=== PATIENT | female | born 1995 | race Caucasian/White ===

== ENCOUNTER 2019-12-18 00:57 | Outpatient (CLI) | payer OTHER ==
[2019-12-18 01:37] LABS: APPEARANCE,URINE CLEAR; BILIRUBIN,URINE NEGATIVE (NEGATIVE); COLOR,URINE STRAW; GLUCOSE, URINE NEGATIVE (NEGATIVE); KETONES,URINE NEGATIVE (NEGATIVE); LEUKOCYTE ESTERASE,URINE NEGATIVE (NEGATIVE); NITRITE,URINE NEGATIVE (NEGATIVE); PROTEIN,URINE NEGATIVE (NEGATIVE); URINE SPECIFIC GRAVITY 1.008; UROBILINOGEN,URINE NEGATIVE mg/dL (<2.0)
[2019-12-18 02:07] LABS: URINE AMPHETAMINES SCREEN NEGATIVE; URINE BARBITURATES SCREEN NEGATIVE; URINE BENZODIAZEPINES SCREEN NEGATIVE; URINE COCAINE SCREEN NEGATIVE; URINE MARIJUANA (THC) SCREEN NEGATIVE; URINE METHADONE SCREEN NEGATIVE; URINE PHENCYCLIDINE SCREEN NEGATIVE
[2019-12-18] MEDS ORDERED: HYDROXYZINE PAMOATE 50 MG CAPSULE PO ONE (04:17)
[2019-12-18] MEDS ORDERED: HYDROXYZINE PAMOATE 50 MG CAPSULE ONE (04:20)
--- NOTE | 2019-12-18 04:27 | RADIOLOGY REPORT (SQ) ---
EXAM DESCRIPTION: US BIOPHYSICAL PROFILE WITHOUT NON STRESS TEST COMPLETED DATE/TME: 12/18/2019 00:00 CLINICAL HISTORY: 24 years, Female, non reassuring hearttones COMPARISON: None. TECHNIQUE: Emergent biophysical profile LIMITATIONS: None. FINDINGS: breathing, tone, movement, fluid volume score 2 of 2 for a total biophysical profile score 8 of 8 IMPRESSION: biophysical profile score 8 of 8 copyright 2010 [employer]- All Rights Reserved
--- NOTE | 2019-12-18 10:08 | L&D Progress Notes ---
PROGRESS NOTES Datetime Report Generated by CPN: 12/18/2019 10:08 PROGRESS NOTE Informed Consent Obtained: Vaginal Delivery; Risks, Benefits and Alternatives Discussed Comment: I just arrived to Unit. Patient returned from US at 0404 and documentation noted at 0406 with 8/8 BPP. From report I was given previously patient reported to have irregular ctx and uncomfortable but reported cervix unchanged from RN eval. No decelerations were reported. Amount of strip visualized on review of short strip since return from US was reassuring with moderate variability and given reported no cervical change discharge order given at 0406. LAST VAGINAL EXAM-NURSING Nursing Exam Dilitation: 1.0 Nursing Exam Effacement: 25 Nursing Exam Station: high MEMBRANES Membranes: Ruptured Amniotic Fluid Color: Clear FETUS A Presentation: Vertex SIGNATURE SIGNATURE: [id number];[id number];[id number];[id number] Signature: with User ID: [email or web address]
== END 2019-12-18 04:35 | disposition home or self-care (01) ==
LOC: LC 00:57
PROVIDERS: ATTEND Student in an Organized Health Care Education/Training Program
DX: O36.8330 Maternal care for abnormalities of the fetal heart rate or rhythm, third trimester, not applicable or unspecified (principal); O47.1 False labor at or after 37 completed weeks of gestation; Z3A.39 39 weeks gestation of pregnancy
CPT/HCPCS: 76819; 80307; 81005

== ENCOUNTER 2019-12-18 04:58 | Inpatient (IN) | payer OTHER ==
[2019-12-18] MEDS ORDERED: OXYTOCIN 10 UNIT/ML VIAL ONE (05:13)
[2019-12-18] MEDS ORDERED: OXYTOCIN/0.9 % SODIUM CHLORIDE 30 UNIT/500 ML RTUINJ ONE (05:13)
[2019-12-18] MEDS ORDERED: MISOPROSTOL 0.2 MG TABLET ONE (05:13)
[2019-12-18] MEDS ORDERED: LIDOCAINE 1% INJ-PF (10 MG/ML) 30 ML SDV ONE (05:13)
[2019-12-18] MEDS ORDERED: RINGERS SOLUTION,LACTATED 1,000 ML IV PRN (05:23)
[2019-12-18] MEDS ORDERED: RINGERS SOLUTION,LACTATED 1,000 ML IV ONE (05:23)
[2019-12-18] MEDS ORDERED: PSEUDOEPHEDRINE HCL 30 MG TABLET PO PRN (05:24)
[2019-12-18] MEDS ORDERED: PROMETHAZINE HCL 25 MG TABLET PO PRN (05:24)
[2019-12-18] MEDS ORDERED: BENZOCAINE/MENTHOL AEROSOL SPRAY 56 ML TOP PRN (05:24)
[2019-12-18] MEDS ORDERED: OXYTOCIN/0.9 % SODIUM CHLORIDE 30 UNIT/500 ML RTUINJ IV PRN (05:24)
[2019-12-18] MEDS ORDERED: PROMETHAZINE HCL INJ 25 MG/1 ML VIAL IV PRN (05:24)
[2019-12-18] MEDS ORDERED: ACETAMINOPHEN 325 MG TABLET PO PRN (05:24)
[2019-12-18] MEDS ORDERED: MEASLES,MUMPS&RUBELLA VACC/PF 0.5 ML VIAL SUBCUT PRN (05:24)
[2019-12-18] MEDS ORDERED: GLYCERIN/WITCH HAZEL LEAF 1 EACH MED..WIPE TP PRN (05:24)
[2019-12-18] MEDS ORDERED: NA PHOS,M-B/NA PHOS,DI-BA (ADULT) 133 ML ENEMA PR PRN (05:24)
[2019-12-18] MEDS ORDERED: DIBUCAINE 1% OINTMENT 28 GM TP PRN (05:24)
[2019-12-18] MEDS ORDERED: ACETAMINOPHEN WITH CODEINE #3 TABLET PO PRN ×2 (05:24)
[2019-12-18] MEDS ORDERED: PROMETHAZINE HCL 25 MG SUPP.RECT PR PRN (05:24)
[2019-12-18] MEDS ORDERED: MAGNESIUM HYDROXIDE SUSP 30 ML UDCUP PO PRN (05:24)
[2019-12-18] MEDS ORDERED: ZOLPIDEM TARTRATE 5 MG TABLET PO PRN (05:24)
[2019-12-18] MEDS ORDERED: DIPH/PERTUSS(ACELL)/TETANUS VAC/PF 0.5 ML SYR (>=10YO) IM PRN (05:24)
[2019-12-18] MEDS ORDERED: DIPHENHYDRAMINE HCL 25 MG CAPSULE PO PRN (05:24)
[2019-12-18] MEDS ORDERED: ACETAMINOPHEN WITH CODEINE #3 TABLET ONE (05:44)
--- NOTE | 2019-12-18 06:01 | Admission Physical ---
Datetime Report Generated by CPN: 12/18/2019 06:00 CURRENT ADMISSION Chief Complaint: Uterine Contractions; Suspected Ruptured Membranes Indication for Induction: Not Applicable Admit Impression : Term, Intrauterine ; Active Labor; Ruptured Membranes Admit Plan: Admit to Unit; Initiate Labor Protocol ALLERGIES Medication Allergies: No Medication Allergies: No Known Allergies (12/18/2019) Latex: No Latex Allergies OBSTETRICAL HISTORY EDC: 12/22/2019 00:00 : 2 Para: 1 SEE RECORDS Alcohol: No Marijuana : No Cocaine: No Other Illicit Drugs: No Cigarettes: Never Smoker. [id number] PHYSICAL EXAM General: Normal HEENT: Normal Neurologic: Normal Thyroid: Deferred Heart: Normal Lungs: Normal Breast: Deferred Back: Normal Abdomen: Normal Genitourinary Exam: Normal Extremities: Normal DTRs: Normal Pelvic Type: Adequate Vital Signs: Reviewed MEMBRANES Membranes: Ruptured Amniotic Fluid Color: Clear FETUS A EGA: 39.3 Monitoring: External US Decelerations: None Presentation: Vertex Admit Comment: 24yo at 39+3 who presented initially this evening at 0120 for ctx and noted to be 07/19/hi by RN check. NST was reassuring but not reactive therefore BPP was obtained which was 8/8. Melo at 0300 was same cervical dilation. Discharged due to no cervical change and reassuring BPP. patient left and upon arrival to her car she reports that she broke her water - approx 0440. She reports the ctx became much stronger and her pressure became intense and she and her partner arrived back to check in for re-eval due to SROM etc. While in front lobby pressure intesified and she reported that she needed to push. MEO called. RN arrived first and delivered baby. Nursing superviser and RN asked pt to sit on floor for delivery. See Nursing documentation for delivery of baby. Reported h/o fast labor with past preg on review of chart. GBS negative. LGSIL pap smear - will need colpo and pap pp. o/w uncomplicated. PLANS FOR LABOR AND DELIVERY Labor and Delivery: None Pain Management: Epidural Feeding Preference: Both INFORMED CONSENT Informed Consent Obtained: Vaginal Delivery; Risks, Benefits and Alternatives Discussed Signature: with User ID: [email or web address]
[2019-12-18 06:11] LABS: ABSOLUTE LYMPHOCYTES (AUTO) 1.2 10^3/uL (0.5-4.7); ABSOLUTE MONOCYTES (AUTO) 0.7 10^3/uL (0.1-1.4); ABSOLUTE NEUT (AUTO) 8.9 10^3/uL (1.7-8.2); BASOPHILS % (AUTO) 0.1 % (0-2); EOSINOPHILS % (AUTO) 0.1 % (0-6); HEMATOCRIT 36.6 % (36.0-47.0); HEMOGLOBIN 12.1 g/dL (12.0-15.5); LYMPHOCYTES % (AUTO) 11.2 % (13-45); MEAN CORPUSCULAR VOLUME 85 fl (80-97); MONOCYTES % (AUTO) 6.5 % (3-13); PLATELET COUNT 138 10^3/uL (150-450); RED BLOOD COUNT 4.31 10^6/uL (3.72-5.28); RED CELL DISTRIBUTION WIDTH 15.2 % (11.5-14.0); SEGMENTED NEUTROPHILS % (AUTO) 82.1 % (42-78); TOTAL CELLS COUNTED % (AUTO) 100 %; WHITE BLOOD COUNT 10.8 10^3/uL (4.0-10.5)
[2019-12-18] MEDS ORDERED: IBUPROFEN 800 MG TABLET ONE ×2 (07:02→07:08)
--- NOTE | 2019-12-18 07:22 | Warning Signs in Babies ---
VOD Warning Signs Datetime Report Generated by [facility]: 12/18/2019 07:21 VOD#608 -Warning Signs in Babies: Viewed with Parent(s)/Family (12/18/2019 00:59:Marquis Candelario RN)
--- NOTE | 2019-12-18 07:23 | Warning Signs in Babies ---
VOD Warning Signs Datetime Report Generated by [facility]: 12/18/2019 07:22 VOD#608 -Warning Signs in Babies: Viewed with Parent(s)/Family (12/18/2019 07:21:Marquis Candelario RN)
--- NOTE | 2019-12-18 07:23 | Delivery Summary ---
Del Sum A-C Datetime Report Generated by CPN: 12/18/2019 07:22 DELIVERY PERSONNEL DELIVERY PERSONNEL: [id number] Delivery Doctor:: Kelsy Cross MD Labor and Delivery Nurse:: Lucinda Alvarez RNtreer Nurse:: Ruchi Becker RN Nursery Nurse:: Adele Zaragoza RN Nursery Nurse:: Avani Uriostegui RN [employer] Architect/FOREIGN LANGUAGE INTERPRETER: ST Coral [employer] Architect/FOREIGN LANGUAGE INTERPRETER: Anastasia Green, ST MATERNAL INFORMATION Delivery Anesthesia: None Medications After Delivery: Pitocin 10 Units IM; Pitocin 30 Units in 500ml NS/D5W Estimated Blood Loss (ml): 50 Delivery QBL: 50 Maternal Complications: Precipitous Labor (<3hrs) Provider Comments: [facility]FI delivered in front lobby by RN due to precipitous labor. I arrived with baby already on maternal chest. Patient was placed in wheelchair with baby on her chest and brought up to labor and delivery. NICU team present and accompanied to room. Patient changed and placed into stirrups. Cord doubly clamped and cut and to NICU team for NRP. Placenta delivered intact spontaneously. FF at U after IM pitocin and then IV started and Pitocin drip initiated. Superficial perineal laceration hemostatic and no repair needed. Precipitous delivery reviewed with patient and partner and mother and baby stable upon provider leaving the room. LABOR SUMMARY EDC: 12/22/2019 00:00 No. Babies in Womb: 1 Labor Anesthesia: None LABOR INFORMATION Reason for Induction: Not Applicable Oxytocin: N/A Group B Beta Strep: negative Steroids Given: None Reason Steroids Not Administered: Not Applicable MEMBRANES Membranes Rupture Method: Spontaneous Rupture of Membranes: 12/18/2019 04:45 Length of Rupture (hr): 0.18 STAGES OF LABOR Stage 3 hr: 0 Stage 3 min: 13 VAGINAL DELIVERY Episiotomy: None Laceration #1: None Laceration Extension #1: N/A Laceration Repair: Not Applicable Sponge Count Correct: Yes Sharps Count Correct: Yes CSECTION DELIVERY Primary Indication: N/A Secondary Indication: N/A CSection Incidence: N/A Labor: N/A Elective: N/A BABY A INFORMATION Infant Delivery Date/Time: 12/18/2019 04:56 Method of Delivery: Vaginal Born in Route : No : N/A Forceps: N/A Vacuum Extraction: N/A Shoulder Dystocia : No PRESENTATION/POSITION BABY A Presentation: Cephalic Breech Presentation: N/A PLACENTA INFORMATION BABY A Placenta Delivery Time : 12/18/2019 05:09 Placenta Method of Delivery: Spontaneous Placenta Status: Delivered SCORES BABY A Heart Rate 1 min: >100 bpm Resp Effort 1 min: Slow, Irregular Reflex Irritability 1 min: Cough or Sneeze or Pulls Away Muscle Tone 1 min: Active Motion Color 1 min: Body [place], Extremities Blue Resuscitation Effort 1 min: Tactile Stimulation SCORE 1 MIN: 8 Heart Rate 5 min: >100 bpm Resp Effort 5 min: Good Cry Reflex Irritability 5 min: Cough or Sneeze or Pulls Away Muscle Tone 5 min: Active Motion Color 5 min: Body [place], Extremities Blue Resuscitation Effort 5 min: Tactile Stimulation SCORE 5 MIN: 9 INFORMATION BABY A Gestational Age at Delivery: 39.3 Gestational Status: Full Term- 39- 40.6 Weeks Outcome : Liveborn Infant Condition : Stable Infant Sex: Female IDENTIFICATION BABY A Verification Date/Time: 12/18/2019 05:33 ID Band Number: [id number] Mother's Name Verified: Yes RN Verifying : Suzanne AlvarezJEROD Additional Verifying Personnel: Arlene Boyle RN WEIGHT/LENGTH BABY A Birthweight (gm): 3260 Infant Weight (lb): 7 Infant Weight (oz): 3 Infant Length (in): 19.25 (Annotations: Data stored by [facility] on behalf of user) Infant Length (cm): 48.90 CORD INFORMATION BABY A Infant Suction: None ASSESSMENT BABY A Skin to Skin: Yes SIGNATURES Signature: with User ID: [email or web address]
[2019-12-18] MEDS: IBUPROFEN 800 MG TABLET PO SCH ×3 (07:45→21:41)
[2019-12-18] MEDS: SENNOSIDES/DOCUSATE 8.6-50 MG 1 EACH TABLET PO SCH (09:32)
[2019-12-18] MEDS: DOCUSATE SODIUM 100 MG CAPSULE PO SCH ×2 (09:32→18:18)
[2019-12-18] MEDS: FERROUS SULFATE 325 MG TABLET PO SCH ×2 (09:32→18:18)
[2019-12-18] MEDS: PRENATAL VITAMIN W DHA CAPSULE PO SCH (09:32)
[2019-12-18] MEDS: FAMOTIDINE 20 MG TABLET PO SCH ×2 (09:33→21:41)
[2019-12-19] MEDS: IBUPROFEN 800 MG TABLET PO SCH ×3 (05:22→21:50)
[2019-12-19 06:54] LABS: HEMATOCRIT 33.6 % (36.0-47.0); HEMOGLOBIN 11.2 g/dL (12.0-15.5); MEAN CORPUSCULAR HEMOGLOBIN 28.3 pg (27.0-33.4); MEAN CORPUSCULAR HGB CONC 33.4 g/dL (32.0-36.0); MEAN CORPUSCULAR VOLUME 85 fl (80-97); PLATELET COUNT 141 10^3/uL (150-450); RED BLOOD COUNT 3.97 10^6/uL (3.72-5.28); RED CELL DISTRIBUTION WIDTH 15.6 % (11.5-14.0); WHITE BLOOD COUNT 7.6 10^3/uL (4.0-10.5)
--- NOTE | 2019-12-19 09:56 | PDOC PROGRESS REPORT ---
Subjective-OB Progress Note for:: 12/19/19 - PP Day #1, O+, Rubella Immune, , UOB voiding. Physical Exam (OB) Vital Signs: Temp Pulse Resp BP Pulse Ox 97.3 F 86 18 121/74 100 12/19/19 07:42 12/19/19 07:42 12/19/19 07:42 12/19/19 07:42 12/19/19 07:42 Intake & Output 12/18/19 12/19/19 12/20/19 06:59 06:59 06:59 Intake Total 1600 Balance 1600 Weight 93.531 kg - General General Appearance: Appears well, Alert In distress: None - PIH/Pre-Eclampsia DTR's: 1 + Clonus: Negative Headache: Absent Epigastric Pain: No Visual Changes: No - Lochia Lochia Amount: Scant < 10 ml Lochia Color: Rubra/Red - Abdomen Description: Soft, Round Hernia Present: No Fundal Description: Firm, Midline Fundal Height: u/u - u/2 - Respiratory Respiratory Status: No respiratory distress - Abdominal Distension: No distension Tenderness: Nontender - Genitourinary Genitourinary Note: voiding - Extremities Upper extremity: Normal inspection Lower extremities: Normal inspection - Neurological Cognition: Normal Orientation: AAOx4 Objective-Diagnostic Laboratory: 12/19/19 06:20 12/19/19 06:20 WBC 7.6 RBC 3.97 Hgb 11.2 L Hct 33.6 L MCV 85 MCH 28.3 MCHC 33.4 RDW 15.6 H Plt Count 141 L Assessment and Plan(PN) - Assessment and Plan (1) Normal course Is this a current diagnosis for this admission?: Yes (2) Precipitous delivery, delivered (current hospitalization) Is this a current diagnosis for this admission?: Yes Plan:: Routine PP orders, ambulation encouraged - Time Spent with Patient Time with patient: Less than 15 minutes Medications reviewed and adjusted accordingly: Yes - Disposition Anticipated Discharge: Home Within: within 24 hours
[2019-12-19] MEDS: PRENATAL VITAMIN W DHA CAPSULE PO SCH (10:16)
[2019-12-19] MEDS: FERROUS SULFATE 325 MG TABLET PO SCH ×2 (10:16→17:46)
[2019-12-19] MEDS: SENNOSIDES/DOCUSATE 8.6-50 MG 1 EACH TABLET PO SCH (10:16)
[2019-12-19] MEDS: FAMOTIDINE 20 MG TABLET PO SCH ×2 (10:16→21:50)
[2019-12-19] MEDS: DOCUSATE SODIUM 100 MG CAPSULE PO SCH ×2 (10:16→17:46)
[2019-12-20] MEDS: IBUPROFEN 800 MG TABLET PO SCH ×2 (05:27→14:00)
[2019-12-20 07:51] VITALS: BP 112/62
--- NOTE | 2019-12-20 10:12 | PDOC DISCHARGE SUMMARY ---
Impression - Admit/DC Date/PCP Admission Date/Primary Care Provider: 12/18/19 05:20 JAIDEN GIPSON MD Discharge Date: 12/20/19 - PP Day #2, doing well, no complaints. [facility] and the baby "dropped' out of her vagina and onto the floo r of the lobby, landing on its head. Thus far, baby has done very well, skull x- rays are negative per Peds MD. - Discharge Diagnosis (1) Normal course Is this a current diagnosis for this admission?: Yes (2) Precipitous delivery, delivered (current hospitalization) Is this a current diagnosis for this admission?: Yes - Additional Information Resuscitation Status: Full Code Discharge Diet: As Tolerated, Regular Discharge Activity: Activity As Tolerated, No Lifting Over 10 Pounds, Pelvic Rest Referrals: JAIDEN GIPSON MD [Primary Care Provider] - Prescriptions: Ibuprofen [Motrin 800 mg Tablet] 800 mg PO Q8 #60 tablet Home Medications: Prenat 115/Iron Fum/Folic/Dss [ 19 Tablet] 1 tab PO DAILY 12/18/19 Ibuprofen [Motrin 800 mg Tablet] 800 mg PO Q8 #60 tablet 12/20/19 HPI Reason(s) for Admission: Onset of Labor Procedures: Ultrasound Intrapartum Procedure(s): Spontaneous Vaginal Delivery Intrapartum Procedure Note: precipitous delivery Complication(s): Laceration-Vaginal Laceration-Degree: 1st Results Laboratory Results: WBC 7.6 10^3/uL (4.0-10.5) 12/19/19 06:20 RBC 3.97 10^6/uL (3.72-5.28) 12/19/19 06:20 Hgb 11.2 g/dL (12.0-15.5) L 12/19/19 06:20 Hct 33.6 % (36.0-47.0) L 12/19/19 06:20 MCV 85 fl (80-97) 12/19/19 06:20 MCH 28.3 pg (27.0-33.4) 12/19/19 06:20 MCHC 33.4 g/dL (32.0-36.0) 12/19/19 06:20 RDW 15.6 % (11.5-14.0) H 12/19/19 06:20 Plt Count 141 10^3/uL (150-450) L 12/19/19 06:20 Lymph % (Auto) 11.2 % (13-45) L 12/18/19 05:55 Carter % (Auto) 6.5 % (3-13) 12/18/19 05:55 Eos % (Auto) 0.1 % (0-6) 12/18/19 05:55 Baso % (Auto) 0.1 % (0-2) 12/18/19 05:55 Absolute Neuts (auto) 8.9 10^3/uL (1.7-8.2) H 12/18/19 05:55 Absolute Lymphs (auto) 1.2 10^3/uL (0.5-4.7) 12/18/19 05:55 Absolute Monos (auto) 0.7 10^3/uL (0.1-1.4) 12/18/19 05:55 Absolute Eos (auto) 0.0 10^3/uL (0.0-0.6) 12/18/19 05:55 Absolute Basos (auto) 0.0 10^3/uL (0.0-0.2) 12/18/19 05:55 Seg Neutrophils % 82.1 % (42-78) H 12/18/19 05:55 RPR NONREACTIVE (NONREACTIVE) 12/18/19 05:55 Blood Type O POSITIVE 12/18/19 05:55 Antibody Screen NEGATIVE 12/18/19 05:55 Plan Plan of Treatment: d/c to home, f/up with [facility] in 4 wks Time Spent: Less than 30 Minutes
[2019-12-20] MEDS: FAMOTIDINE 20 MG TABLET PO SCH (10:15)
[2019-12-20] MEDS: PRENATAL VITAMIN W DHA CAPSULE PO SCH (10:15)
[2019-12-20] MEDS: SENNOSIDES/DOCUSATE 8.6-50 MG 1 EACH TABLET PO SCH (10:15)
[2019-12-20] MEDS: DOCUSATE SODIUM 100 MG CAPSULE PO SCH (10:15)
[2019-12-20] MEDS: FERROUS SULFATE 325 MG TABLET PO SCH (10:15)
== END 2019-12-20 15:25 | disposition home or self-care (01) | DRG 807 ==
LOC: LC 04:58 → LR 05:20 → 2N 07:44
PROVIDERS: ADMIT Student in an Organized Health Care Education/Training Program; ATTEND Student in an Organized Health Care Education/Training Program
PROC: 10E0XZZ Delivery of Products of Conception, External Approach (ICD-10-PCS; principal; 2019-12-18)
DX: O62.3 Precipitate labor (principal); Z37.0 Single live birth; Z3A.39 39 weeks gestation of pregnancy
CPT/HCPCS: 36415; 85025; 85027; 86592; 86850; 86900; 86901; J2590; J3490